=== PATIENT | female | born 1965 | race Caucasian/White ===

== ENCOUNTER → 2019-01-29 12:48 | Outpatient (CLI) | payer OTHER, SELFPAY ==
--- NOTE | 2019-01-29 | DI.US.S_ITS ---
PROCEDURE: US CAROTID DOPPLER BI INDICATIONS: Dizziness and giddiness Dysarthria and anarthria TECHNIQUE: Color and pulse Doppler interrogation was performed of both carotid systems, with image documentation and velocity measurements. COMPARISON: None. FINDINGS: Stenosis calculations are based on SRU (Society of Radiologists in Ultrasound) criteria. Right side: Common carotid artery peak systolic velocity: 102 cm/sec. Internal carotid artery peak systolic velocity: 99 cm/sec. Internal carotid artery end diastolic velocity: 36 cm/sec. External carotid artery peak systolic velocity: 93 cm/sec. ICA/CCA peak systolic ratio: 1.0. Reyes scale imaging description: No calcific or soft plaque. Percent internal carotid artery stenosis: None found. Vertebral artery: Flow direction is antegrade. Left side: Common carotid artery peak systolic velocity: 88 cm/sec. Internal carotid artery peak systolic velocity: 85 cm/sec. Internal carotid artery end diastolic velocity: 33 cm/sec. External carotid artery peak systolic velocity: 71 cm/sec. ICA/CCA peak systolic ratio: 1.0. Reyes scale imaging description: No calcific or soft plaque found. Percent internal carotid artery stenosis: None found. Vertebral artery: Flow direction is antegrade. IMPRESSION: No carotid stenosis identified bilaterally. Normal vertebral arterial flow bilaterally. Source of current symptoms is not seen. Dictated by: Omar Flores M.D. on 01/29/2019 at 15:25 Approved by: Omar Flores M.D. on 01/29/2019 at 15:27
--- NOTE | 2019-01-29 | DI.MRI.S_ITS ---
PROCEDURE: MR ANGIO HEAD WO CON INDICATIONS: Dizziness and giddiness Dysarthria and anarthria TECHNIQUE: Noncontrast axial 3-D [id number] MR angiogram, with 3-dimensional maximum intensity projection (MIP) reformats of the internal carotid arteries and posterior circulation then performed. COMPARISON: None. FINDINGS: Image quality: Excellent. Anterior circulation: Intracranial internal carotid arteries demonstrate normal size and intraluminal flow signal. The flow within the paired anterior cerebral arteries is normal and symmetric. The flow within the middle cerebral arteries is normal and symmetric. The anterior communicating artery is seen. No stenoses, occlusions, or aneurysms. Posterior circulation: Visualized portions of the vertebral arteries demonstrate normal caliber, and join to form a normal appearing basilar artery. The proximal right posterior cerebral artery is fenestrated. The flow within the posterior cerebral arteries is normal and symmetric. No stenoses, occlusions, or aneurysms. IMPRESSION: 1. 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 2. Otherwise normal brain angiogram. Dictated by: Janey Berg M.D. on 01/29/2019 at 14:01 Approved by: Janey Berg M.D. on 01/29/2019 at 18:44
== END ==
PROVIDERS: Family Provider Physician Assistant; PCP Family Medicine; Visit Provider Family Medicine
DX: R47.1 Dysarthria and anarthria (principal); R42 Dizziness and giddiness
CPT/HCPCS: 70544; 93880

== ENCOUNTER → 2019-10-24 15:23 | Outpatient (CLI) | payer OTHER, SELFPAY ==
--- NOTE | 2019-10-24 | DI.MRI.S_ITS ---
PROCEDURE: MR HEAD/BRAIN WO CON INDICATIONS: Dizziness and giddiness TECHNIQUE: Noncontrast axial T1 spin echo, axial T2 fast spin echo, sagittal and axial FLAIR, coronal T2 fast spin echo, axial gradient echo, axial diffusion and ADC through the brain. COMPARISON: None. FINDINGS: Image quality: Excellent. CSF Spaces: Basal cisterns are patent. No extra-axial fluid collections. Ventricles are normal in size and shape. Brain: No intracranial masses or hemorrhage. Reyes/white matter interface is normal. Brainstem appears normal. Diffusion-weighted images demonstrate no acute ischemic insult. No chronic ischemic insults. Normal intravascular flow voids are present. Skull and face: Calvarium has normal marrow signal. Orbits appear normal. Sinuses: Sinuses and mastoids are clear. IMPRESSION: Normal for age, source of current altered mental status symptoms is not seen. Dictated by: Omar Flores M.D. on 10/24/2019 at 16:32 Approved by: Omar Flores M.D. on 10/24/2019 at 16:33
== END ==
PROVIDERS: Family Provider Family Medicine; PCP Family Medicine; Visit Provider Psychiatry & Neurology Neurology
DX: R42 Dizziness and giddiness (principal); R41.82 Altered mental status, unspecified; M62.81 Muscle weakness (generalized); R47.01 Aphasia
CPT/HCPCS: 70551

== ENCOUNTER → 2021-08-05 10:39 | Outpatient (CLI) | payer OTHER, MEDICAID, SELFPAY ==
[2021-08-05 22:17] LABS: COVID19 - ORCAS (NP or Nasal) Negative (Negative)
== END ==
PROVIDERS: Family Provider Family Medicine; PCP Family Medicine; Visit Provider Family Medicine
DX: Z20.822 Contact with and (suspected) exposure to COVID-19 (principal)
CPT/HCPCS: U0003

== ENCOUNTER → 2021-10-30 07:54 | Outpatient (CLI) | payer OTHER, MEDICAID, SELFPAY ==
[2021-10-30 20:01] LABS: COVID19 - ORCAS (NP or Nasal) Negative (Negative)
== END ==
PROVIDERS: Family Provider Family Medicine; PCP Family Medicine; Visit Provider Physician Assistant Medical
DX: U07.1 COVID-19 (principal)
CPT/HCPCS: U0003

== ENCOUNTER → 2022-05-12 08:58 | Outpatient (CLI) | payer OTHER, MEDICAID, SELFPAY ==
[2022-05-12 19:58] LABS: Add Manual Diff / Slide Review NO; Basophils Absolute Auto 0 /uL (0-100); Basophils Percent Auto 0.7 % (0-2); Eosinophils Absolute Auto 200 /uL (0-450); Eosinophils Percent Auto 3.8 % (2-4); Hematocrit 39.6 % (36-46); Hemoglobin 13.4 g/dL (12.0-16.0); Lymphocytes Absolute Auto 1800 /uL (1100-4500); Lymphocytes Percent Auto 40.2 % (25-40); Mean Corpuscular HGB Conc 33.8 % (30-36); Mean Corpuscular Hemoglobin 30.7 PG (26-34); Mean Corpuscular Volume 90.7 fL (80-100); Monocytes Absolute Auto 500 /uL (0-900); Monocytes Percent Auto 10.1 % (3-14); Neutrophils Absolute Auto 2100 /uL (1500-7000); Neutrophils Percent Auto 45.2 % (50-75); Platelet Count 189 X10^3/uL (150-400); Red Blood Cell Count 4.37 X10^6/uL (4.0-5.2); Red Cell Distribution Width 13.5 % (11.6-14.8); White Blood Cell Count 4.5 X10^3/uL (4.5-11.0)
[2022-05-12 20:15] LABS: Alanine Aminotransferase 31 IU/L (<35); Albumin 4.4 g/dL (3.5-5.0); Albumin Globulin Ratio 1.7 (1.0-2.8); Alkaline Phosphatase 98 U/L (38-126); Aspartate Aminotransferase 34 IU/L (14-36); BUN Creatinine Ratio 26.6 (6-22); Bilirubin Total 0.7 mg/dL (0.2-1.3); Blood Urea Nitrogen 17 mg/dL (7-17); Calcium 9.2 mg/dL (8.4-10.2); Carbon Dioxide 30 mmol/L (22-32); Chloride 105 mmol/L (98-107); Cholesterol 187 mg/dL (140-199); Estimated Glomerular Filt Rate > 60 mL/min (>60); Globulin 2.6 g/dL (1.7-4.1); Glucose 98 mg/dL (70-100); HDL Cholesterol 76 mg/dL (40-60); HEMOLYSIS < 15 (0-50); LDL Cholesterol Calculated 98 mg/dL (<100); Potassium 4.3 mmol/L (3.4-5.1); Sodium 138 mmol/L (137-145); Triglycerides 65 mg/dL (35-150)
== END ==
PROVIDERS: Family Provider Family Medicine; PCP Physician Assistant; Visit Provider Physician Assistant
DX: K21.9 Gastro-esophageal reflux disease without esophagitis (principal); Z13.220 Encounter for screening for lipoid disorders; Z79.899 Other long term (current) drug therapy
CPT/HCPCS: 80053; 80061; 85025

== ENCOUNTER → 2022-06-25 07:03 | Outpatient (CLI) | payer OTHER, MEDICAID, SELFPAY ==
[2022-06-25 20:15] LABS: COVID19 - ORCAS (NP or Nasal) POSITIVE (Negative)
== END ==
PROVIDERS: Family Provider Family Medicine; PCP Physician Assistant; Visit Provider Family Medicine
DX: U07.1 COVID-19 (principal)
CPT/HCPCS: C9803; U0003

== ENCOUNTER → 2022-10-27 11:27 | Outpatient (CLI) | payer OTHER, SELFPAY ==
[2022-10-27 19:15] LABS: Add Manual Diff / Slide Review NO; Basophils Absolute Auto 0 /uL (0-100); Basophils Percent Auto 0.4 % (0-2); Eosinophils Absolute Auto 200 /uL (0-450); Hematocrit 40.5 % (36-46); Hemoglobin 13.8 g/dL (12.0-16.0); Lymphocytes Absolute Auto 1500 /uL (1100-4500); Lymphocytes Percent Auto 27.2 % (25-40); Mean Corpuscular HGB Conc 34.1 % (30-36); Mean Corpuscular Hemoglobin 30.8 PG (26-34); Mean Corpuscular Volume 90.4 fL (80-100); Monocytes Absolute Auto 600 /uL (0-900); Monocytes Percent Auto 11.6 % (3-14); Neutrophils Absolute Auto 3200 /uL (1500-7000); Neutrophils Percent Auto 57.8 % (50-75); Platelet Count 183 X10^3/uL (150-400); Red Blood Cell Count 4.48 X10^6/uL (4.0-5.2); Red Cell Distribution Width 12.9 % (11.6-14.8); White Blood Cell Count 5.6 X10^3/uL (4.5-11.0)
[2022-10-27 19:33] LABS: Amylase 50 U/L (30-110); Lipase 124 U/L (23-300)
[2022-10-27 20:39] LABS: COVID19 - ORCAS (NP or Nasal) Negative (Negative)
== END ==
PROVIDERS: Family Provider Family Medicine; PCP Physician Assistant; Visit Provider Physician Assistant
DX: R10.9 Unspecified abdominal pain (principal); R53.83 Other fatigue; Z01.812 Encounter for preprocedural laboratory examination; Z20.822 Contact with and (suspected) exposure to COVID-19
CPT/HCPCS: 82150; 83690; 85025; U0003

== ENCOUNTER → 2022-11-10 10:17 | Outpatient (CLI) | payer OTHER, SELFPAY ==
--- NOTE | 2022-11-10 10:19 | DI.MRI.S_ITS ---
PROCEDURE: MR CERVICAL SPINE WO CON INDICATIONS: neck pain w/ lifting injury years ago TECHNIQUE: Noncontrast sagittal T1 spin echo and T2 fast spin echo, sagittal STIR, foraminal oblique sagittal T2 fast spin echo, and axial gradient echo or T2 fast spin echo through the cervical spine. COMPARISON: None. FINDINGS: Image quality: Excellent. Alignment and Curvature: There is loss of normal cervical lordosis. Roughly 2 mm of anterolisthesis of C4 on C5 is present. Bone Marrow: Marrow demonstrates normal overall signal. Mild reactive signal throughout the endplates of the cervical and upper thoracic spine. Spinal Cord: Visualized spinal cord has normal size and signal. No cerebellar tonsillar herniation. Paraspinous Soft Tissues: No paravertebral masses. Prevertebral soft tissues are normal in thickness. C2-C3: Moderate disc desiccation. Mild diffuse disc bulge. Mild canal stenosis. No foraminal stenosis. C3-C4: Moderate disc desiccation. Mild diffuse disc bulge. Mild facet and uncovertebral hypertrophy bilaterally. Mild canal stenosis. Mild bilateral foraminal stenosis. C4-C5: Moderate disc desiccation. Mild diffuse disc bulge. Mild facet and uncovertebral hypertrophy. Mild canal stenosis. Mild bilateral foraminal stenosis. C5-C6: Moderate disc desiccation. Mild diffuse disc bulge. Mild facet and uncovertebral hypertrophy. Mild canal stenosis. Mild bilateral foraminal stenosis C6-C7: Moderate disc desiccation. Mild diffuse disc bulge. Mild facet and uncovertebral hypertrophy bilaterally. Mild canal stenosis. Moderate bilateral foraminal stenosis. C7-T1: Mild disc desiccation and diffuse disc bulge. Mild facet and uncovertebral hypertrophy. Mild canal stenosis. Mild bilateral foraminal stenosis. IMPRESSION: 1. Multilevel degenerative disc and facet disease, as well as uncovertebral hypertrophy. 2. Mild multilevel canal and foraminal stenoses. No neural impingement. Dictated by: Darnell Guadalupe M.D. on 11/10/2022 at 11:10 Transcribed by: OSITO on 11/10/2022 at 11:12 Approved by: Darnell Guadalupe M.D. on 11/10/2022 at 16:04
--- NOTE | 2022-11-10 10:19 | DI.MG.S_ITS ---
BILATERAL DIGITAL SCREENING MAMMOGRAM 3D/2D WITH CAD: 11/10/2022 CLINICAL: Routine screening. Comparison is made to exams dated: 12/21/2017 mammogram - [facility] and 01/24/2001 mammogram - [facility]. Both breasts are heterogeneously dense, which may obscure small masses (category c / 51-75% glandular tissue). Current study was also evaluated with a Computer Aided Detection (CAD) system. No significant masses, calcifications, or other findings are seen in either breast. There has been no significant interval change. IMPRESSION: NEGATIVE There is no mammographic evidence of malignancy. A 1 year screening mammogram is recommended. Based on the Tyrer Cuzick model (a risk assessment model) the patient's lifetime risk is 14.8% and her 10 year risk is 5.8%. According to the ACR, ACS, and NCCN guidelines, an annual breast MRI exam along with mammogram is recommended if the patient's lifetime risk is 20% or greater. This exam was interpreted at Station ID: [id number]. NOTE: For mammograms, a report in lay terms will be sent to the patient. Approximately 15% of breast malignancies will not be visualized mammographically. In the management of a palpable breast mass, a negative mammogram must not discourage biopsy of a clinically suspicious lesion. Electronically Signed By: Murali Ruth M.D. acr/raquel:11/10/2022 14:35:28 letter sent: Normal Exam ACR BI-RADS Category 1: Negative [id number]
--- NOTE | 2022-11-10 10:19 | DI.CT.S_ITS ---
PROCEDURE: CT ABDOMEN PELVIS W CON INDICATIONS: abdominal pain, chronic diarrhea, ? abd mass left mid TECHNIQUE: After the administration of oral and IV contrast, axial sections were acquired from the lung bases to the pubic symphysis. Coronal and sagittal reformats were performed. For radiation dose reduction, the following was used: automated exposure control, adjustment of mA and/or kV according to patient size. COMPARISON: None. FINDINGS: Image quality: Excellent. Lung bases: Unremarkable. Heart: No significant findings. ABDOMEN: Liver: Mild focal fatty infiltration adjacent to the falciform ligament. Gallbladder: Unremarkable. Biliary ducts: Unremarkable. Pancreas: Unremarkable. Spleen: Unremarkable. Adrenal Glands: Unremarkable. Kidneys and Ureters: Unremarkable. Stomach and Bowel: Moderate stool in the right colon. The descending and sigmoid colon are underdistended. Small bowel loops are unremarkable. Terminal ileum is unremarkable. Peritoneum: No abnormal intraperitoneal fluid. No free air. Ventral Wall: Tiny fat containing periumbilical hernia. Abdominal Nodes: No retroperitoneal or mesenteric adenopathy by size criteria. Vessels: Aorta and inferior vena cava are normal in size. PELVIS: Pelvic Organs: Unremarkable. Bladder: Unremarkable. Pelvic Nodes: No enlarged lymph nodes. Miscellaneous: No inguinal hernias are seen. Bones: Mild degenerative changes are seen in the spine. IMPRESSION: No acute abnormality identified in the abdomen or pelvis Approved by: Vinicius Barnett M.D. on 11/10/2022 at 13:14
== END ==
PROVIDERS: Family Provider Family Medicine; PCP Physician Assistant; Referring Provider Physician Assistant; Visit Provider Physician Assistant
DX: Z12.31 Encounter for screening mammogram for malignant neoplasm of breast (principal); M50.31 Other cervical disc degeneration, high cervical region; M48.02 Spinal stenosis, cervical region; R19.02 Left upper quadrant abdominal swelling, mass and lump; R10.9 Unspecified abdominal pain; R53.83 Other fatigue; M79.18 Myalgia, other site
CPT/HCPCS: 72141; 74177; 77063; 77067; Q9967

== ENCOUNTER → 2023-11-14 14:43 | Outpatient (CLI) | payer OTHER, SELFPAY | PROVIDERS: Family Provider Family Medicine; PCP Physician Assistant; Visit Provider Physician Assistant | DX: R30.0 Dysuria (principal) | CPT/HCPCS: 87077; 87086; 87147 ==

== ENCOUNTER → 2024-02-29 08:46 | Outpatient (CLI) | payer OTHER, SELFPAY | PROVIDERS: Family Provider Family Medicine; PCP Physician Assistant; Visit Provider Physician Assistant | DX: R30.0 Dysuria (principal) | CPT/HCPCS: 87077; 87086; 87147 ==

== ENCOUNTER → 2024-03-01 10:01 | Outpatient (CLI) | payer OTHER, SELFPAY ==
[2024-03-01 19:52] LABS: Thyroid Stimulating Hormone 1.33 uIU/mL (0.47-4.68)
[2024-03-01 23:01] LABS: Free T4, Direct Thyroxine 1.27 ng/dL (0.78-2.19)
== END ==
PROVIDERS: Family Provider Family Medicine; PCP Physician Assistant; Visit Provider Nurse Practitioner Adult Health
DX: E04.9 Nontoxic goiter, unspecified (principal)
CPT/HCPCS: 84439; 84443

== ENCOUNTER → 2024-04-12 10:00 | Outpatient (CLI) | payer OTHER, SELFPAY ==
--- NOTE | 2024-04-12 10:01 | DI.US.S_ITS ---
PROCEDURE: US THYROID INDICATIONS: enlarged thyroid TECHNIQUE: Real-time scanning was performed of the thyroid gland, with image documentation. COMPARISON: None. FINDINGS: Thyroid: Right lobe measures 5.6 x 1.1 x 1.3 cm. Left lobe measures 5.3 x 1.1 x 1.2 cm. Isthmus is 0.1 cm thick. Echotexture is homogeneous. IMPRESSION: No thyroid nodules. Approved by: Clarita Hillman M.D.,Ph.D. on 04/12/2024 at 22:05
--- NOTE | 2024-04-12 10:01 | DI.RAD.S_ITS ---
PROCEDURE: XR DEXA AXIAL SKELETON INDICATIONS: osteoporosis screening COMPARISON: None. FINDINGS: Lumbar Spine: Bone mineral density 0.627 g/cm2, T score -3.8, osteoporosis. Left Hip: Bone mineral density 0.744 g/cm2, T score -1.6, osteopenia. Left Femoral Neck: Bone mineral density 0.576 g/cm2, T score -2.5, osteoporosis. Right Hip: Bone mineral density 0.721 g/cm2, T score -1.8, osteopenia. Right Femoral Neck: Bone mineral density is 0.588 g/cm2, T score -2.4, osteopenia. Fracture Risk Calculation (when applicable): 10-year fracture risk of a major osteoporotic fracture 17% and of a hip fracture 3.1%. (T score greater or equal to -1.0 to: NORMAL) (T score from -1.1 to -2.4: OSTEOPENIA) (T score less than or equal to -2.5: OSTEOPOROSIS) IMPRESSION: Based on WHO criteria, the patient has osteoporosis. Follow-up guidelines as follows: Osteoporosis: Consider a repeat DEXA and Vertebral Fracture Assessment (VFA) exam in 2 years or sooner if medically necessary, to reassess this patient's status. Osteopenia: Consider a repeat DEXA in 2-3 years to reassess this patient's status, or if there is a new clinical indication. Normal: Consider a repeat DEXA in 5 years or sooner, or if there is a new clinical indication. Dictated by: Janey Berg M.D. on 04/12/2024 at 11:49 Approved by: Janey Berg M.D. on 04/12/2024 at 11:50
== END ==
PROVIDERS: Family Provider Family Medicine; PCP Physician Assistant; Referring Provider Nurse Practitioner Adult Health; Visit Provider Nurse Practitioner Adult Health
DX: E04.9 Nontoxic goiter, unspecified (principal); Z13.820 Encounter for screening for osteoporosis; M81.0 Age-related osteoporosis without current pathological fracture
CPT/HCPCS: 76536; 77080

== ENCOUNTER → 2025-05-02 14:13 | Outpatient (CLI) | payer OTHER, SELFPAY ==
--- NOTE | 2025-05-02 14:15 | DI.US.S_ITS ---
PROCEDURE: US ABDOMEN COMPLETE INDICATIONS: ABDOMINAL PAIN TECHNIQUE: Real-time scanning was performed of the abdominal and retroperitoneal organs, with image documentation. COMPARISON: None. FINDINGS: Liver: Increased liver echogenicity, likely mild hepatic steatosis. Gallbladder: No gallstones or wall thickening. Biliary ducts: Intrahepatic bile ducts are non-dilated. Extrahepatic bile duct caliber measures 6.9 mm. Normal is 6-7 mm or less in diameter, or 10 mm or less post-cholecystectomy. Pancreas: Visualized portions of the pancreas are sonographically normal. Spleen: Spleen is normal in size and homogeneous in echotexture. Kidneys: Kidneys are normal in size and echotexture. Right kidney measures 9.6 cm long; left kidney measures 10.1 cm long. No hydronephrosis or nephrolithiasis. No solid masses. Aorta: Visualized aorta is normal in caliber at less than 3 cm. Iliacs: Proximal common iliac arteries are normal in caliber at less than 2.5 cm. IVC: Intrahepatic inferior vena cava is patent. Miscellaneous: No free abdominal fluid. Small umbilical hernia containing fat. This is reducible. The neck measures 6 x 5 millimeter. IMPRESSION: Small, reducible umbilical hernia containing fat. The neck measures 6 x 5 millimeter. Mild hepatic steatosis. Dictated by: Chapo Regan M.D. on 05/03/2025 at 11:14 Approved by: Chapo Regan M.D. on 05/03/2025 at 11:15
== END ==
PROVIDERS: Family Provider Family Medicine; PCP Physician Assistant; Referring Provider Physician Assistant; Visit Provider Naturopath
DX: K42.9 Umbilical hernia without obstruction or gangrene (principal); K76.0 Fatty (change of) liver, not elsewhere classified; R19.00 Intra-abdominal and pelvic swelling, mass and lump, unspecified site; R10.9 Unspecified abdominal pain
CPT/HCPCS: 76700